=== PATIENT | male | born 1975 | race African-American/Black ===

== ENCOUNTER → 2016-11-02 | Outpatient (CLI) | payer OTHER ==
--- NOTE | 2016-11-02 11:15 | REP ---
CHEST X-RAY: Two views. HISTORY: Chest infiltrate. No comparison views. FINDINGS: There is an alveolar infiltrate in the right upper lobe on today's chest x-ray. On lateral radiograph, there is a linear density overlying the spine posteriorly. This may reflect infiltrate and/or atelectasis in the right upper lobe. Remaining lung shields are clear. Pleural angles are sharp. Left hemidiaphragm is slightly elevated. Heart size is normal. No bony abnormality is seen. IMPRESSION: Infiltrate and/or atelectasis right upper lobe consistent with pneumonia. Signed by Guido Munguia MD 11/02/2016 12:34 P
== END ==
LOC: M RAD 09:40
PROVIDERS: ATTEND Surgery
DX: R91.8 Other nonspecific abnormal finding of lung field (principal)

== ENCOUNTER → 2017-06-02 | Outpatient (CLI) | payer OTHER | LOC: M RAD 09:31 | DX: R75 Inconclusive laboratory evidence of human immunodeficiency virus [HIV] (principal); R68.89 Other general symptoms and signs | CPT/HCPCS: 71046 ==

== ENCOUNTER → 2017-12-10 | Outpatient (CLI) | payer OTHER ==
[~2017-12-10] MED LIST: GASTROGRAFIN SOLUTION 30ML (Q9963) As Ordered; ISOVUE-370 76% 100ML VIAL (Q9967) As Ordered
== END ==
LOC: M RAD 08:44
DX: K43.9 Ventral hernia without obstruction or gangrene (principal)
CPT/HCPCS: Q9963